=== PATIENT | male | born 1945 | race Caucasian/White ===

== ENCOUNTER 2016-09-15 14:22 | Outpatient (CLI) | payer SELFPAY ==
[2016-09-15 15:46] LABS: THYROID STIMULATING HORMONE 0.24 uIU/mL (0.358-3.74)
== END 2016-09-15 23:59 | disposition home or self-care (01) ==
LOC: LAB 14:22
DX: E03.9 Hypothyroidism, unspecified (principal)
CPT/HCPCS: 36415; 84439-TC; 84443-TC

== ENCOUNTER 2017-06-07 10:08 | Outpatient (CLI) | payer SELFPAY | END 2017-06-07 23:59 | disposition home or self-care (01) | LOC: LAB 10:08 | DX: E03.9 Hypothyroidism, unspecified (principal) | CPT/HCPCS: 36415; 84443-TC ==

== ENCOUNTER 2018-09-20 13:34 | Outpatient (CLI) | payer SELFPAY ==
[2018-09-20 15:42] LABS: FREE T4 (FREE THYROXINE) 0.69 ng/dL (0.76-1.46); THYROID STIMULATING HORMONE 0.297 uIU/mL (0.358-3.74)
== END 2018-09-20 23:59 | disposition home or self-care (01) ==
LOC: LAB 13:34
DX: E03.9 Hypothyroidism, unspecified (principal)
CPT/HCPCS: 36415; 84439-TC; 84443-TC